=== PATIENT | male | born 1990 | race Two or more races ===

== ENCOUNTER 2024-06-24 00:44 | Emergency (ER) | payer BC, SELFPAY ==
[2024-06-24 00:51] VITALS: BP 135/83; PULSE 91; RESP 18; TEMP 36.9; O2SAT 99
[2024-06-24 01:30] LABS: Lactate (Lactic Acid) 0.8 mMol/L (0.4-2.0)
[2024-06-24 01:35] LABS: Collection Type, Urine Clean Catch
[2024-06-24 01:40] LABS: Basophils % (Auto) 1 % (0-2.5); Eosinophils % (Auto) 1 % (0-10); Hematocrit 40.1 % (41.0-53.0); Hemoglobin 14.4 g/dL (13.5-16.0); Immature Granulocytes % (Auto) 0 % (0-0); Immature Granulocytes Auto 0.02 Thou/mm3 (0.00-0.00); Lymphocytes # (Auto) 0.5 Thou/mm3 (1.0-4.8); Lymphocytes % (Auto) 10 % (10-50); Mean Corpuscular HGB Conc 35.9 g/dl (31.0-37.0); Mean Corpuscular Hemoglobin 30.9 pg (25.0-35.0); Mean Corpuscular Volume 86 fL (80-100); Monocytes # (Auto) 0.4 Thou/mm3 (0.0-0.8); Monocytes % (Auto) 7 % (0-12); Neutrophils # (Auto) 3.8 Thou/mm3 (1.8-7.7); Neutrophils % (Auto) 81 % (37-80); Nucleated Red Blood Cell % 0 /100 WBC (0); Platelet Count 107 Thou/mm3 (140-440); RDW Standard Deviation 40.5 fL (35.1-43.9); Red Blood Count 4.66 Miln/mm3 (4.50-5.90); White Blood Count 4.7 Thou/mm3 (3.8-10.6)
[2024-06-24 01:50] LABS: Amphetamine/Methamp Scrn,U Negative (Negative); Barbiturate Screen,Urine Negative (Negative); Benzodiazepines Screen,Urine Negative (Negative); Benzoylecgonine Screen, Ur Negative (Negative); Fentanyl Screen,Urine Negative (Negative); Opiate Screen,Urine Negative (Negative); THC Screen,Urine Negative (Negative)
[2024-06-24 01:59] LABS: Alanine Aminotransferase 46 U/L (10-49); Albumin, Serum 4.7 gm/dL (3.5-5.0); Albumin/Globulin Ratio 1.6 (1.2-2.2); Alkaline Phosphatase 73 U/L (46-116); Anion Gap 10 (7-16); Aspartate Amino Transferase 44 U/L (0-34); BUN/Creatinine Ratio 15 Ratio (12-20); Bilirubin,Total 1.3 mg/dL (0.3-1.2); Blood Urea Nitrogen 15 mg/dL (9-23); Calcium 9.4 mg/dL (8.3-10.6); Calcium (Corrected) 9.4 mg/dL (8.5-10.1); Carbon Dioxide 24.6 mMol/L (20.0-31.0); Chloride 101 mMol/L (98-107); Globulin 2.9 gm/dL (2.3-3.5); Glucose 130 mg/dL (74-106); Lipase 39 U/L (12-53); Osmolality,Calculated 274 (275-295); Potassium 3.1 mMol/L (3.4-5.1); Procalcitonin 1.18 ng/ml (0.0-0.49); Sodium 136 mMol/L (136-145); Total Protein 7.6 gm/dL (5.7-8.2); eGFR > 60 See Note
[2024-06-24 02:02] LABS: Bilirubin,Urine Negative (Negative); Blood,Urine 1+ (Negative); Clarity,Urine Clear (Clear/Hazy); Color,Urine Yellow (Lt Yel-Yel); Glucose, Urine Negative (Negative); Ketones,Urine Trace (Negative); Leukocyte Esterase,Urine Negative (Negative); Nitrite,Urine Negative (Negative); Protein,Urine 2+ (Neg - Trace); RBC,Urine 5 /hpf (0-3); Squamous Epithelial Cell,Urine 1 /hpf (0-5); WBC,Urine 6 /hpf (0-5)
[2024-06-24] MEDS: POTASSIUM CHLORIDE 20 mEq TABCR 40 MEQ PO (02:50)
--- NOTE | 2024-06-24 05:46 | EDNOTE_ITS ---
Nausea/Vomit./Diarrhea-RME/HPI General Chief complaint: Fever Stated complaint: Fever, ate raw ribs Time Seen by Provider: 06/24/24 01:04 Arrival date/time: 06/24/24 00:44 33M with no significant PMH presents to ED with several days of intermittent ab pain/cramping, N/V, and fevers/chills since eating some undercooked ribs. Patient denies URI symptoms. Limitations: no limitations Related Data Previous Rx's ?Medication ?Instructions ?Recorded ondansetron 4 mg disintegrating 4 mg PO Q8H PRN nausea and 06/24/24 tablet vomiting #14 tabs Allergies Allergy/AdvReac Type Severity Reaction Status Date / Time No Known Allergies Allergy Verified 06/24/24 00:47 Review of Systems Review of Systems Systems Reviewed: All systems reviewed, normal except as documented Constitutional Constitutional: Reports system reviewed and no additional complaints, except as documented, Reports as per HPI, Reports chills, Reports fever(s) and Denies headache(s) ENT Ears, Nose, Mouth, and Throat: Denies disequilibrium and Denies headache(s) Cardiovascular Cardiovascular: Reports system reviewed and no additional complaints, except as documented, Denies chest pain and Denies dyspnea Respiratory Respiratory: Reports system reviewed and no additional complaints, except as documented, Denies cough and Denies dyspnea Gastrointestinal Gastrointestinal: Reports system reviewed and no additional complaints, except as documented, Reports as per HPI, Reports abdominal pain, Reports nausea and Reports vomiting Neurologic Neurologic: Reports system reviewed and no additional complaints, except as documented, Denies confusion, Denies disequilibrium and Denies headache(s) Psychiatric Psychiatric: Denies confusion Past Medical History Social History SMOKING STATUS: Former smoker ED Exam General Limitations: Present no limitations General appearance: Present alert and in no apparent distress Head Head exam: Present atraumatic Eye Eye exam: Present normal appearance, PERRL and EOMI ENT ENT exam: Present normal exam, normal oropharynx and mucous membranes moist Neck Neck exam: Present normal inspection, full ROM and trachea midline Chest Chest inspection: Present normal inspection and symmetric chest wall rise Respiratory Respiratory exam: Present normal lung sounds bilaterally Cardiovascular Cardiovascular exam: Present regular rate, normal rhythm and normal heart sounds Abdominal Exam Abdominal exam: Present soft and normal bowel sounds Extremities Exam Extremities exam: Present normal inspection and full ROM Back Exam Back exam: Present normal inspection and full ROM Neurological Exam Neurological exam: Present alert, oriented X3 and CN II-XII intact Psychiatric Psychiatric exam: Present normal affect and normal mood Skin Skin exam: Present warm, dry, intact and normal color Course Quality Measures none Orders Category Date Time Status CBC Stat Lab 06/24/24 01:22 Completed CMP [Comprehensive Metabolic Panel] Stat Lab 06/24/24 01:22 Completed Drug Screen,Urine Stat Lab 06/24/24 01:26 Completed Lactate (Lactic Acid) Stat Lab 06/24/24 01:22 Completed Lipase Stat Lab 06/24/24 01:22 Completed Procalcitonin Stat Lab 06/24/24 01:22 Completed UA [Urinalysis] Stat Lab 06/24/24 01:26 Completed Potassium Chloride [K-Dur] Med 06/24/24 02:31 Discontinued 40 meq PO X1 ONE Vital Signs Vital signs: Vital Signs Temperature 98.4 F 06/24/24 00:51 Pulse Rate 91 06/24/24 00:51 Respiratory Rate 18 06/24/24 00:51 Blood Pressure 135/83 H 06/24/24 00:51 Pulse Oximetry (%) 99 06/24/24 00:51 Oxygen Delivery Method Room Air 06/24/24 00:51 O2 at 99% on RA and WNLs Nausea/Vomiting/Diarrhea MDM Narrative MDM Narrative:: 33M with no significant PMH presents to ED with several days of intermittent ab pain/cramping, N/V, and fevers/chills since eating some undercooked ribs. Patient denies URI symptoms. Physical exam reveals no ab tenderness. Patient is afebrile, calm, and alert. No leukocytosis. UA contaminated but no gross UTI. Procal mildly elevated, but lactate normal. CMP unremarkable except for mild hypoK, repleted. Likely food poisoning. Patient data External records reviewed:: None Clinical information provided by:: patient Social determinants that could affect healthcare access:: none Patient has the following chronic illnesses:: none How is presenting disease/condition affected by chronic disease/condition?: no chronic disease Evaluation data The following diagnostics were reviewed and interpreted by me:: lab results Lab and/or radiology exams considered but not ordered:: ordered Interpretation Summary: above Medications / Prescriptions Medications / Prescriptions considered but not ordered:: ordered Medication administrations:: Medication Administration History Discontinued Medications Potassium Chloride (Potassium Chloride 20 Meq Tabcr) 40 meq PO X1 ONE Stop: 04/25/25 02:32 Last Admin: 06/24/24 02:50 Dose: 40 meq Documented By: SF above Consultations Consultation(s) initiated? (list below): No Diagnosis Nausea Differential Diagnosis: traveler's diarrhea, food poisoning, gastroenteritis, clostridium difficile infection, drug-induced nausea and vomiting and dehydration Most likely diagnosis given after review of the tests above:: food poisoning Admission Indicated Admission indicated?: not indicated Admission Request Was there a request for admission?: No Disposition Plan Disposition Plan: Discharge Discharge Attestation Discharge Attestation: The patient and all family members were given an opportunity to ask questions and understood the discharge instructions. Discharge instructions specifically effects, indications for sooner follow up or return to the emergency department, and the expected course of current diagnosis. Patient condition: Stable Discharge Plan Plan Patient Disposition: HOME (Self Care) Disposition Comment: Stable Prescriptions/Referrals Prescriptions/Med Rec: New ondansetron 4 mg tablet,disintegrating 4 mg PO Q8H PRN (Reason: nausea and vomiting) Qty: 14 0RF Referrals: Marquez Lorenzana PA-C [Primary Care Provider] - In 1 week Problem List Clinical Impression: Food poisoning, Hypokalemia Patient/Caregiver Discharge Instructions Education Materials: ED Food Poisoning (Adult) Additional Instructions: Please follow-up with PCP within 24-48 hours and return immediately if symptoms worsen. Keep hydrated. Print Language: Macedonian Stand Alone Forms: Patient Portal Info Letter KATYA/SCOTT Supervising Physician KATYA/SCOTT Supervising Physician: Dr. Jennings
== END 2024-06-24 02:53 | disposition home or self-care (01) ==
PROVIDERS: Physician Assistant; Emergency Provider Emergency Medicine; PCP Physician Assistant
DX: A05.9 Bacterial foodborne intoxication, unspecified (principal); E87.6 Hypokalemia
CPT/HCPCS: 36415; 80053; 80307; 81001; 83605; 83690; 84145; 85025; 99283; A9270

== ENCOUNTER 2024-06-27 23:45 | Emergency (ER) | payer BC, SELFPAY ==
[2024-06-27 23:49] VITALS: BMI 33.4
[2024-06-27 23:50] VITALS: BP 136/88; PULSE 88; RESP 20; TEMP 38.8; O2SAT 97
--- NOTE | 2024-06-28 00:23 | EDNOTE_ITS ---
ED Headache RME/HPI General Chief Complaint: Headache Stated Complaint: HEADACHE Time Seen by Provider: 06/28/24 00:14 Source: patient, family, RN notes reviewed and old records reviewed Arrival date/time: 06/27/24 23:45 Mode of arrival: ambulatory Limitations: no limitations RME / HPI RME / HPI Narrative: 34yom presents to ED for 1-week history of aching, throbbing frontal headache. Current pain 7/10. Reports nausea but no vomiting. No vision changes, dizziness or neck pain. Patient endorse intermittent fevers, chills, body aches. Hx of recent food poisoning from pork last week. GI symptoms have resolved. Related Data Previous Rx's ?Medication ?Instructions ?Recorded ondansetron 4 mg disintegrating 4 mg PO Q8H PRN nausea and 06/24/24 tablet vomiting #14 tabs acetaminophen 500 mg tablet 1,000 mg (2 x 500 mg) PO Q 6H PRN 06/28/24 (Tylenol Extra Strength) fever or pain #30 tabs albendazole 200 mg tablet 400 mg (2 x 200 mg) PO BID 1 0 days 06/28/24 #40 tabs ibuprofen 600 mg tablet 600 mg PO Q6H PRN fever or p ain 06/28/24 #30 tabs sulfamethoxazole 800 1 tab PO BID 10 days #20 tab s 06/28/24 mg-trimethoprim 160 mg tablet (Bactrim DS) Allergies Allergy/AdvReac Type Severity Reaction Status Date / Time No Known Allergies Allergy Verified 06/27/24 23:50 Review of Systems Review of Systems Systems Reviewed: All systems reviewed, normal except as documented Constitutional Constitutional: Reports body ache(s), Reports chills, Reports fever(s) and Reports headache(s) Eyes Eyes: Denies blurry vision and Denies loss of vision ENT Ears, Nose, Mouth, and Throat: Denies dizziness, Reports headache(s), Denies nasal congestion and Denies sore throat Cardiovascular Cardiovascular: Denies chest pain, Denies dyspnea and Denies syncope Respiratory Respiratory: Denies dyspnea Gastrointestinal Gastrointestinal: Denies nausea and Denies vomiting Neurologic Neurologic: Denies dizziness, Denies localized weakness, Reports headache(s), Denies loss of vision and Denies syncope Past Medical History Past Medical History GASTROINTESTINAL: Positive Obesity Social History SMOKING STATUS: Former smoker (Discontinued 8 days ago) SUBSTANCE USE: does not use ALCOHOL: Never ED Exam General Limitations: Present no limitations General appearance: Present alert and in no apparent distress Head Head exam: Present atraumatic and normocephalic Eye Eye exam: Present normal appearance, PERRL and EOMI ENT ENT exam: Present normal exam and mucous membranes moist Neck Neck exam: Present normal inspection and full ROM Chest Chest inspection: Present normal inspection and symmetric chest wall rise Respiratory Respiratory exam: Present normal lung sounds bilaterally; Absent respiratory distress Cardiovascular Cardiovascular exam: Present regular rate and normal rhythm Abdominal Exam Abdominal exam: Present soft; Absent distention, tenderness, guarding or rebound Extremities Exam Extremities exam: Present normal inspection and full ROM Neurological Exam Neurological exam: Present alert, oriented X3, CN II-XII intact and normal gait; Absent motor sensory deficit Psychiatric Psychiatric exam: Present normal affect and normal mood Skin Skin exam: Present warm, dry, intact and normal color Course Quality Measures none Orders Category Date Time Status Bedside COVID-19 Antigen Test NOW Care 06/28/24 00:21 Completed Bedside Influenza A&B Antigen Test NOW Care 06/28/24 00:21 Completed CBC Stat Lab 06/28/24 00:43 Completed CMP [Comprehensive Metabolic Panel] Stat Lab 06/28/24 00:43 Completed Acetaminophen Tab [Tylenol ES Tab] Med 06/28/24 00:21 Discontinued 1,000 mg PO X1 ONE DiphenhydrAMINE INJ [Benadryl Inj] Med 06/28/24 00:21 Discontinued 25 mg IM X1 ONE Ketorolac Inj [Toradol Inj] Med 06/28/24 00:21 Discontinued 30 mg IM X1 ONE Metoclopramide [Reglan] Med 06/28/24 00:21 Discontinued 10 mg PO X1 ONE Vital Signs Vital signs: Vital Signs Temperature 101.8 F H 06/27/24 23:50 Pulse Rate 88 06/27/24 23:50 Respiratory Rate 20 06/27/24 23:50 Blood Pressure 136/88 H 06/27/24 23:50 Pulse Oximetry (%) 97 06/27/24 23:50 Oxygen Delivery Method Room Air 06/27/24 23:50 Headache MDM Narrative MDM Narrative:: 34yom presents to ED for 1-week history of aching, throbbing frontal headache. Current pain 7/10. Reports nausea but no vomiting. No vision changes, dizziness or neck pain. Patient endorse intermittent fevers, chills and body aches. Hx of recent food poisoning from pork last week. GI symptoms have resolved. Patient reassessed. BRENNAN improved after medications administered. Patient is neurologically intact. Suspect fever related to recent food poisoning from pork, will treat. Encouraged adequate fluids, symptomatic treatment prn. Stable for dc, RTED precautions given. Patient data External records reviewed:: [facility] previous records (/ ED visit for food poisoning) Clinical information provided by:: patient and spouse Social determinants that could affect healthcare access:: none Patient has the following chronic illnesses:: Obesity How is presenting disease/condition affected by chronic disease/condition?: uneffected by Evaluation data The following diagnostics were reviewed and interpreted by me:: lab results Lab and/or radiology exams considered but not ordered:: CT head: Patient is neurologically intact. No red flag signs or symptoms Interpretation Summary: No leukocytosis No acute kidney injury COVID/flu negative Medications / Prescriptions Medications or Prescriptions considered but not ordered:: none Medication administrations:: Medication Administration History Discontinued Medications Acetaminophen (Acetaminophen 500 Mg Tablet) 1,000 mg PO X1 ONE Stop: 06/28/24 00:22 Last Admin: 06/28/24 00:44 Dose: 1,000 mg Documented By: MALORIE Diphenhydramine HCl (Diphenhydramine Inj 50 Mg/Ml Vial) 25 mg IM X1 ONE Stop: 06/28/24 00:22 Last Admin: 06/28/24 00:46 Dose: 25 mg Documented By: MALORIE Ketorolac Tromethamine (Ketorolac Inj 60 Mg/2 Ml Vial) 30 mg IM X1 ONE Stop: 06/28/24 00:22 Last Admin: 06/28/24 00:45 Dose: 30 mg Documented By: MALORIE Metoclopramide HCl (Metoclopramide 5 Mg Tablet) 10 mg PO X1 ONE Stop: 06/28/24 00:22 Last Admin: 06/28/24 00:48 Dose: 10 mg Documented By: MALORIE Above medications administered in ED Consultations Consultation(s) initiated? (list below): No Diagnosis Differential diagnosis headache: migraine, tension headache, headache and meningitis Most likely diagnosis given after review of the tests above:: Headache Admission Indicated Admission indicated?: not indicated Admission Request Was there a request for admission?: No Disposition Plan Disposition Plan: Discharge Discharge Attestation Discharge Attestation: The patient and all family members were given an opportunity to ask questions and understood the discharge instructions. Discharge instructions specifically effects, indications for sooner follow up or return to the emergency department, and the expected course of current diagnosis. Patient condition: Stable Discharge Plan Plan Patient Disposition: HOME (Self Care) Patient condition on transfer: Stable Prescriptions/Referrals Prescriptions/Med Rec: New sulfamethoxazole-trimethoprim [Bactrim DS] 800-160 mg tablet 1 tab PO BID 10 Days Qty: 20 0RF albendazole 200 mg tablet 400 mg PO BID 10 Days Qty: 40 0RF ibuprofen 600 mg tablet 600 mg PO Q6H PRN (Reason: fever or pain) Qty: 30 0RF acetaminophen [Tylenol Extra Strength] 500 mg tablet 1,000 mg PO Q6H PRN (Reason: fever or pain) Qty: 30 0RF No Action ondansetron 4 mg tablet,disintegrating 4 mg PO Q8H PRN (Reason: nausea and vomiting) Qty: 14 0RF Referrals: Marquez Lorenzana PA-C [Primary Care Provider] - In 1 week Problem List Clinical Impression: Headache, Food poisoning Patient/Caregiver Discharge Instructions Education Materials: Self-Care for Headaches Print Language: Japanese Stand Alone Forms: [employer] Award Info., Work/School Release, Patient Portal Info Letter KATYA/SCOTT Supervising Physician PAM Supervising Physician: Hetal
[2024-06-28 00:44] VITALS: TEMP 38.8
[2024-06-28] MEDS: ACETAMINOPHEN 500 MG TABLET 1000 MG PO (00:44)
[2024-06-28] MEDS: KETOROLAC INJ 60 MG/2 ML VIAL 30 MG IM (00:45)
[2024-06-28] MEDS: DiphenhydrAMINE INJ 50 MG/ML VIAL 25 MG IM (00:46)
[2024-06-28] MEDS: METOCLOPRAMIDE 5 MG TABLET 10 MG PO (00:48)
[2024-06-28 01:02] LABS: Basophils % (Auto) 0 % (0-2.5); Eosinophils % (Auto) 1 % (0-10); Hematocrit 36.3 % (41.0-53.0); Immature Granulocytes % (Auto) 0 % (0-0); Immature Granulocytes Auto 0.02 Thou/mm3 (0.00-0.00); Lymphocytes # (Auto) 0.9 Thou/mm3 (1.0-4.8); Lymphocytes % (Auto) 18 % (10-50); Mean Corpuscular HGB Conc 35.8 g/dl (31.0-37.0); Mean Corpuscular Volume 87 fL (80-100); Monocytes # (Auto) 0.5 Thou/mm3 (0.0-0.8); Monocytes % (Auto) 11 % (0-12); Neutrophils # (Auto) 3.4 Thou/mm3 (1.8-7.7); Neutrophils % (Auto) 70 % (37-80); Nucleated Red Blood Cell % 0 /100 WBC (0); Platelet Count 196 Thou/mm3 (140-440); RDW Standard Deviation 41.3 fL (35.1-43.9); Red Blood Count 4.19 Miln/mm3 (4.50-5.90); White Blood Count 4.8 Thou/mm3 (3.8-10.6)
[2024-06-28 01:12] LABS: Alanine Aminotransferase 76 U/L (10-49); Albumin, Serum 4.8 gm/dL (3.5-5.0); Albumin/Globulin Ratio 1.7 (1.2-2.2); Alkaline Phosphatase 66 U/L (46-116); Anion Gap 8 (7-16); Aspartate Amino Transferase 47 U/L (0-34); BUN/Creatinine Ratio 12 Ratio (12-20); Bilirubin,Total 0.7 mg/dL (0.3-1.2); Blood Urea Nitrogen 13 mg/dL (9-23); Calcium 9.6 mg/dL (8.3-10.6); Calcium (Corrected) 9.6 mg/dL (8.5-10.1); Carbon Dioxide 23.7 mMol/L (20.0-31.0); Chloride 99 mMol/L (98-107); Creatinine (Component) 1.1 mg/dL (0.6-1.3); Estimated Creatinine Clearance 108.4 mL/min (>60); Globulin 2.9 gm/dL (2.3-3.5); Glucose 125 mg/dL (74-106); Osmolality,Calculated 263 (275-295); Potassium 3.7 mMol/L (3.4-5.1); Sodium 131 mMol/L (136-145); Total Protein 7.7 gm/dL (5.7-8.2); eGFR > 60 See Note
[2024-06-28 01:53] VITALS: BP 128/86; PULSE 75; RESP 20; TEMP 37.5; O2SAT 97
== END 2024-06-28 02:05 | disposition home or self-care (01) ==
PROVIDERS: Physician Assistant; Emergency Provider Emergency Medicine; PCP Physician Assistant
DX: A05.9 Bacterial foodborne intoxication, unspecified (principal); R51.9 Headache, unspecified
CPT/HCPCS: 36415; 80053; 85025; 87400; 87811; 96372; 99283; J1200; J1885; A9270